=== PATIENT | female | born 1960 | race Caucasian/White ===

== ENCOUNTER 2023-08-02 15:34 | Emergency (ER) | payer BC, OTHER ==
[2023-08-02] MEDS ORDERED: methylPREDNISolone Sodium Succinate 40 MG/1 ML SDV IM ONE (16:04)
== END 2023-08-02 16:41 | disposition home or self-care (01) ==
LOC: JD.ED 15:34
DX: L50.0 Allergic urticaria (principal); Z88.2 Allergy status to sulfonamides
CPT/HCPCS: 96372; 99283; J2920; 99282